=== PATIENT | male | born 1950 | race Caucasian/White ===

== ENCOUNTER 2025-06-06 13:10 | Emergency (ER) | payer BC, SELFPAY ==
[2025-06-06 13:12] VITALS: BP 151/93
--- NOTE | 2025-06-06 13:54 | ED.GENMED ---
History of Present Illness
General
Chief Complaint: Fall
Time Seen by Provider: 06/06/25 13:53
History of Present Illness
History of Present Illness:
FOCUSED PAST MEDICAL HISTORY
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
REVIEW OF OLD RECORDS
- No old records available for review [facility]
Note:
CHIEF COMPLAINT(S)
Inability to bear weight on the right leg after falling into a pool.
HISTORY OF PRESENT ILLNESS
The patient is a 74-year-old male who experienced a fall into a pool after losing balance while clearing the filter. During the fall, he scraped his leg and immediately noted an inability to bear weight on it. Upon standing, he realized the severity
of the issue. He arrived at the facility independently. The patient reported pain in the leg with minimal movement, rated at a 2 on a pain scale when stationary, but noted that pain increases with movement, particularly when attempting to extend the
leg. No other injuries were reported, including head or neck injuries.
CHRONIC MEDICAL CONDITIONS SIGNIFICANTLY AFFECTING CARE
The patient reports having an existing orthopedic doctor for a hand condition.
PHYSICAL EXAM
- General: Well appearing in no distress
- Head: No craniofacial trauma
- C-spine: No midline c-spine tenderness; normal AROM of C-spine
- Back: Normal AROM thoracolumbar spine
- HEENT: Moist oral mucosa, no blood
- Cardiovascular: No murmurs, normal heart rate, regular rhythm, No chest wall tenderness
- Pulmonary: No respiratory distress, breath sounds are clear and equal
- Abdomen: Soft with no peritoneal signs, no tenderness
- Neurologic: Excellent strength all extremities, no coordination deficits
- Psychiatric: Appropriate mental status, normal insight and judgement
- Extremities: The patient has mild soft tissue swelling/right knee effusion and markedly decreased active range of motion and currently hold the knee in flexion
- Skin: Abrasions noted over the right mag[place]
PLAN
Notify orthopedic specialists for evaluation and possible surgical intervention. Discussed the use of a knee immobilizer to maintain leg extension and reduce pain. The possibility of obtaining a computed tomography scan was mentioned for further
assessment of the fracture.
DIFFERENTIAL DIAGNOSIS
The Differential Diagnosis includes, in no particular order and is not limited to:
1. Tibial plateau fracture
2. Ligamentous injury (e.g., meniscal tear)
3. Femoral fracture
4. Fibular fracture
5. Patellar fracture
6. Osteoarthritis exacerbation
7. Joint effusion
8. Soft tissue injury (e.g., sprain, contusion)
9. Osteomyelitis
10. Compartment syndrome
RADIOLOGY
- X-ray shows a comminuted fracture at the medial aspect of the lateral tibial plateau
UPDATE
- Discussed case with orthopedics - recommends [place] trauma f/u w/ Dr. Tab Salinas
SUMMARY OF ENCOUNTER
The patient, a 74-year-old male, was seen in the emergency department after experiencing a fall into a pool while clearing the filter, resulting in an inability to bear weight on his right leg. An X-ray revealed a tibial plateau fracture. The
management in the ED included plans for an workforce specialist evaluation and discussion about the likelihood of surgical intervention. A knee immobilizer and crutches were to be provided for stabilization and mobilization, and a CT scan was
considered for further assessment.
DISPOSITION
Discharge.
PLAN
The plan is to have the patient follow up with an workforce specialist, with several names provided for options, including Dr. Chavarria and a trauma orthopedic doctor, Anival Salinas. The patient is advised to get a copy of the imaging disc,
including the CT and X-ray, to bring to the orthopedic consultation. I have also given him [facility] orthopedics phone number as another option, he was given the immobilizer.
INDEPENDENT REVIEW OF LABS AND INTERPRETATION OF TESTS
My independent X-ray interpretation shows a tibial plateau fracture with noted irregularities.
PATIENT EDUCATION AND COUNSELING
The patient was educated on the importance of using the knee immobilizer and crutches for support and stability. He was informed about the potential need for surgical intervention and the importance of follow-up with an workforce specialist.
FOLLOW-UP INSTRUCTIONS
The patient was advised to follow up with the orthopedic specialists as discussed, with names provided for ease of scheduling.
MEDICATION RECONCILIATION
A prescription for narcotic pain medication was sent to the patients pharmacy.
MEDICAL DECISION MAKING
-Complexity of Data Reviewed: Chronic conditions affecting care, including the history of a hand condition. Differential diagnosis includes tibial plateau fracture, ligamentous injury, femoral fracture, fibular fracture, patellar fracture,
osteoarthritis exacerbation, joint effusion, soft tissue injury, osteomyelitis, and compartment syndrome.
-Data:
Category 1
Non-emergency department records reviewed, including the patients outpatient pharmacy records.
Category 3
Discussion of management with orthopedic specialists regarding possible surgical intervention.
-Risk:
Prescription medication was prescribed.
DIAGNOSIS
Tibial plateau fracture (S82.102A).
Phy Exam
Physical Exam
Physical Exam:
See HPI
Course
Orders/Labs/Results
Orders:
Orders
06/06/25 13:15
Knee, Right 4 or More Views [CR Knee- Right 4 Or More View*] Urgent
Comment:
Reason For Exam: pain after fall
06/06/25 14:01
CT Lower Ext W/o Iv Cont Rt Urgent
Comment:
Reason For Exam: eval tibial plateau fracture
Knee Immobilizer Right-Treatme ONCE
06/06/25 15:34
Knee Immobilizer Right-Treatme ONCE
Vital Signs
Initial and Last Documented VS:
Initial Vital Signs
Pulse Resp BP Pulse Ox
72 18 151/93 97
06/06/25 13:12 06/06/25 13:12 06/06/25 13:12 06/06/25 13:12
Last Documented Vital Signs
Temp Pulse Resp BP Pulse Ox
36.9 C 72 18 151/93 97
06/06/25 13:14 06/06/25 13:12 06/06/25 13:12 06/06/25 13:12 06/06/25 13:56
*Pulse Oximetry
SaO2: 97
Oxygen Mode of Delivery: Room air
Patient hypoxic: no
*Critical Care Note
Total Time (30-74mins, 75-104mins- exclusive of procedures): Not Applicable
ED Attending Note
-
Portions of this chart may have been created with voice recognition software.� Occasional wrong word or��sound alike� substitutions may have occurred due to the inherent limitations of voice recognition software.
Discharge Plan
Departure
Patient Disposition: Home (Routine Discharge)
Date of Disposition: 06/06/25
Time of Disposition: 15:30
Patient with high blood pressure during this ER visit?: Yes
Discharge Problem:
Fracture of tibial plateau, closed
Instructions: Lower Leg Fracture ED, How to use a knee brace, BLOOD PRESSURE
Prescriptions:
New
oxycodone-acetaminophen [Percocet] 5-325 mg tablet
1 - 2 tab PO Q6HPRN PRN (Reason: pain) Qty: 14 0RF
Referrals:
Anival Salinas MD [Non-Admitting Privileges, Orthopedics]
Frederic Sethi MD [Active, Orthopedics]
Beltran Chavarria MD [Active, Orthopedics]
Gerardo Atkinson MD [Family Provider, Internal Medicine]
Activity Restrictions/Additional Instructions:
Dr. Chavarria is the on-call orthopedist today for [facility]. He is a [facility] doctor. He recommended that you follow-up with Dr. Anival Salinas through [facility]. I have also given you the other group associated with [facility]
orthopedics. Dr. Sethi is on-call for [facility] orthopedics but their group is not on-call today. You could also try calling their group tomorrow. I sent a prescription for narcotic to your pharmacy. If you take narcotic, I recommend you
take something like MiraLAX to help event constipation.
XRAY REPORT:
There is a comminuted fracture extending from the medial aspect of the lateral tibial plateau through the medial aspect of the proximal right tibia to the medial border of the metaphysis of the proximal right tibia with some possible minimal
depression of the major fracture fragment.
Likely posttraumatic suprapatellar effusion is seen.
Osseous degenerative changes are noted.
A CT of the lower extremity was also obtained.
Interventions
Interventions:
*Risk Screen - Suicide Last Done: 06/06/25 13:12
*General Assessment Last Done: 06/06/25 13:12
ED-Musculoskeletal Assessment Last Done: 06/06/25 14:06
ED- Neurological Assessment Last Done: 06/06/25 14:06
ED-Skin Assessment Last Done: 06/06/25 14:06
Discharge Date and Time
Print Language: RUSSIAN
[2025-06-06 14:06] VITALS: BMI 30.6
== END 2025-06-06 17:29 | disposition home or self-care (01) ==
LOC: EMR 13:10
PROVIDERS: EMERGENCY PHYSICIAN Emergency Medicine; FAMILY PHYSICIAN Internal Medicine
DX: S82.141A Displaced bicondylar fracture of right tibia, initial encounter for closed fracture (principal); W16.012A Fall into swimming pool striking water surface causing other injury, initial encounter; Y93.H9 Activity, other involving exterior property and land maintenance, building and construction; K22.70 Barrett's esophagus without dysplasia
CPT/HCPCS: 99284; 73564; 73700